=== PATIENT | female | born 1990 | race Caucasian/White ===

== ENCOUNTER 2022-02-25 06:20 | Inpatient (IN) | payer OTHER ==
[2022-02-25] MEDS: ELECTROLYTE-148 SOLN 1,000 ML IV SCH ×4 (08:00→22:00)
[2022-02-25] MEDS ORDERED: MISOPROSTOL 25 MCG TABLET (COMPOUNDED BY PHARMACY) PV ONE (08:50)
[2022-02-25 09:46] VITALS: BMI 37.2
[2022-02-25] MEDS ORDERED: PROMETHAZINE HCL 25 MG/1 ML VIAL IVPUSH ONE (14:08)
[2022-02-25] MEDS ORDERED: BUTORPHANOL TARTRATE 1 MG/ML VIAL IVPUSH ONE (14:08)
[2022-02-25] MEDS ORDERED: OXYTOCIN 30 UNITS in 0.9% NS 30 UNIT/500 ML INFUS.BAG IVPB SCH (14:15)
[2022-02-25] MEDS ORDERED: BUTORPHANOL TARTRATE 2 MG/ML VIAL ONE (14:26)
[2022-02-25] MEDS ORDERED: PROMETHAZINE HCL 25 MG/1 ML VIAL ONE (14:27)
[2022-02-25] MEDS ORDERED: FENTANYL/BUPIVACAINE/NS/PF - PCEA - 50 ML DISP.SYRIN EP ONE ×2 (16:26→21:16)
[2022-02-25] MEDS ORDERED: NALOXONE HCL 0.4 MG/ML VIAL IVPUSH PRN (16:41)
[2022-02-25] MEDS ORDERED: FENTANYL/BUPIVACAINE/NS/PF - PCEA - 50 ML DISP.SYRIN EP SCH (16:45)
[2022-02-25] MEDS ORDERED: OXYTOCIN 30 UNITS in 0.9% NS 30 UNIT/500 ML INFUS.BAG IVPB ONE (19:26)
[2022-02-25 20:43] LABS: HIV INTERPRETATION NEGATIVE (NEGATIVE)
[2022-02-25 20:56] LABS: HEPATITIS B SURFACE AG MATERN NON-REACTIVE (NONREACTIVE)
[2022-02-26] MEDS ORDERED: FENTANYL/BUPIVACAINE/NS/PF - PCEA - 50 ML DISP.SYRIN EP ONE ×2 (01:21→06:19)
[2022-02-26 06:41] LABS: BASO % 0.4 % (0-2.0); EOS % 0.3 % (0-4.5); HEMOGLOBIN 12.8 GM/dL (10.7-15.3); LYMPH % 7.3 % (8-40); MCH 28.4 pg (25.7-33.7); MCHC 33.8 g/dl (32.0-36.0); MEAN CELL VOLUME 84.1 fl (80-96); MEAN PLT VOLUME 8.8 fl (7.5-11.1); MONO % 5.6 % (3.8-10.2); NEUT % 86.4 % (42.8-82.8); PLATELET COUNT 196 10^3/uL (134-434); RBC 4.52 M/mm3 (3.60-5.2); RDW 15.3 % (11.6-15.6); WHITE BLOOD COUNT 15.8 K/mm3 (4.0-10.0)
[2022-02-26] MEDS ORDERED: OXYTOCIN 20 UNITS in 0.9% NS 20 UNIT/1,000 ML INFUS.BAG IV ONE (07:13)
[2022-02-26] MEDS ORDERED: LIDOCAINE HCL 1% PRESERVATIVE FREE - 30ML VIAL ONE (07:13)
[2022-02-26] MEDS ORDERED: BUPIVACAINE HCL/PF 0.25% (2.5MG/ML) 10 ML VIAL ONE (07:46)
[2022-02-26] MEDS ORDERED: BENZOCAINE 28 GM HEMORRHOIDAL OINTMENT TP PRN (09:23)
[2022-02-26] MEDS ORDERED: BISACODYL 10 MG SUPP.RECT RC PRN (09:23)
[2022-02-26] MEDS ORDERED: WITCH HAZEL 50% (TUCKS) 40 PAD/JAR PAD TP PRN (09:23)
[2022-02-26] MEDS ORDERED: ACETAMINOPHEN 325 MG TABLET (FP) PO PRN (09:23)
[2022-02-26] MEDS ORDERED: BENZOCAINE 20% 57 GM BOTTLE TP PRN (09:23)
[2022-02-26] MEDS ORDERED: METHYLERGONOVINE MALEATE 0.2 MG/1 ML AMP IM PRN (09:23)
[2022-02-26] MEDS ORDERED: OXYTOCIN 20 UNITS in 0.9% NS 20 UNIT/1,000 ML INFUS.BAG IV SCH (09:30)
[2022-02-26 09:54] LABS: CORD BASE EXCESS -4.6 mmol/L (0-2); CORD HCO3 20.7 mmHg (20-29); CORD PCO2 39.3 mmHg (30-78); CORD pH 7.339 (7.14-7.44)
[2022-02-26 09:58] LABS: CORD BASE EXCESS -4.2 mmol/L (0-2); CORD HCO3 22.8 mmHg (20-29); CORD PCO2 48.7 mmHg (30-78); CORD pH 7.289 (7.14-7.44)
[2022-02-26] MEDS ORDERED: IBUPROFEN 600 MG TABLET (FP) PO ONE (10:16)
[2022-02-26] MEDS: IBUPROFEN 600 MG TABLET (FP) PO PRN ×2 (10:30→16:49)
[2022-02-26 12:40] LABS: INR 1.02 (0.83-1.09); PROTHROMBIN TIME (PATIENT) 11.7 SEC (9.7-13.0)
[2022-02-26 12:43] LABS: ACTIVATED PTT 28.2 SECONDS (25.2-36.5)
[2022-02-26 12:52] LABS: CALCIUM 8.6 mg/dL (8.5-10.1)
[2022-02-26 12:53] LABS: BLOOD UREA NITROGEN 5.4 mg/dL (7-18)
[2022-02-26 12:56] LABS: CREATININE 0.7 mg/dL (0.55-1.3)
[2022-02-27] MEDS: IBUPROFEN 600 MG TABLET (FP) PO PRN ×3 (06:35→20:49)
[2022-02-27 08:08] LABS: BASO % 0.3 % (0-2.0); EOS % 2.8 % (0-4.5); HEMATOCRIT 37.6 % (32.4-45.2); HEMOGLOBIN 12.6 GM/dL (10.7-15.3); LYMPH % 12.5 % (8-40); MCH 28.4 pg (25.7-33.7); MCHC 33.4 g/dl (32.0-36.0); MEAN CELL VOLUME 84.9 fl (80-96); MEAN PLT VOLUME 9.1 fl (7.5-11.1); MONO % 7.6 % (3.8-10.2); NEUT % 76.8 % (42.8-82.8); PLATELET COUNT 222 10^3/uL (134-434); RBC 4.43 M/mm3 (3.60-5.2); WHITE BLOOD COUNT 15.2 K/mm3 (4.0-10.0)
[2022-02-27] MEDS ORDERED: SENNOSIDES/DOCUSATE COMBO (SENNA PLUS) TABLET (UD) PO PRN (22:00)
[2022-02-28] MEDS ORDERED: diphenhydrAMINE HCL 25 MG CAPSULE (FP) PO PRN (00:25)
[2022-02-28] MEDS: IBUPROFEN 600 MG TABLET (FP) PO PRN (09:17)
[2022-02-28 11:42] VITALS: BP 117/76; PULSE 91; RESP 16; TEMP 99.3
== END 2022-02-28 14:00 | disposition home or self-care (01) | DRG 807 ==
LOC: JLDR 06:20 → J3W 02-26 10:45
PROVIDERS: ADMIT Obstetrics & Gynecology; ATTEND Obstetrics & Gynecology
PROC: 3E0P7VZ Introduction of Hormone into Female Reproductive, Via Natural or Artificial Opening (ICD-10-PCS; 2022-02-25)
PROC: 0U7C7ZZ Dilation of Cervix, Via Natural or Artificial Opening (ICD-10-PCS; 2022-02-25)
PROC: 10E0XZZ Delivery of Products of Conception, External Approach (ICD-10-PCS; principal; 2022-02-26)
PROC: 10907ZC Drainage of Amniotic Fluid, Therapeutic from Products of Conception, Via Natural or Artificial Opening (ICD-10-PCS; 2022-02-26)
PROC: 0W8NXZZ Division of Female Perineum, External Approach (ICD-10-PCS; 2022-02-26)
DX: O24.420 Gestational diabetes mellitus in childbirth, diet controlled (principal); O69.81X0 Labor and delivery complicated by cord around neck, without compression, not applicable or unspecified; O70.0 First degree perineal laceration during delivery; O99.214 Obesity complicating childbirth; E66.9 Obesity, unspecified; Z3A.39 39 weeks gestation of pregnancy; Z37.0 Single live birth
CPT/HCPCS: 36415; 36600; 59409; 80048; 82803; 82962; 85025; 85610; 85730; 86780; 86850; 86900; 86901; 87340; 87389